=== PATIENT | female | born 1995 | race African-American/Black ===

== ENCOUNTER 2016-09-28 18:41 | Observation (INO) | payer MEDICAID ==
[~2016-09-28] VITALS: Ht 157.5 cm; Wt 98.4 kg
== END 2016-09-28 20:00 | disposition home or self-care (01) ==
LOC: L&D 18:41
PROVIDERS: ADMIT Obstetrics & Gynecology; ATTEND Obstetrics & Gynecology
DX: O26.893 Other specified pregnancy related conditions, third trimester (principal); Z3A.32 32 weeks gestation of pregnancy
CPT/HCPCS: 99281; G0378